=== PATIENT | male | born 1990 | race Caucasian/White ===

== ENCOUNTER 2025-03-08 10:26 | Emergency (ER) | payer MEDICAID, OTHER ==
[~2025-03-08] VITALS: Ht 180.3 cm; Wt 87.0 kg
--- NOTE | 2025-03-08 11:07 | ED.PDOC ---
Psychiatric HPI Comments This is a 34 year old male BIB father presenting to the ED with chief complaint of hallucinations. Father reports that the patient has been experiencing auditory and visual hallucinations for the past 3 weeks with associated sleeplessness. Father relays that the patient has been acting odd and brought him here today for assistance. Patient denies any SI, HI, or further symptoms at this time. Chief Complaint: Hallucinations Time Seen by MD: 11:04 Reviewed Notes: Nurses Notes, Medications, Allergies Information Source: Patient Mode of Arrival: Ambulatory Severity: Able to Care for Self, Able to Control Self Severity of Pain: None Severity of Mental Status: Moderate Severity of Symptoms: Moderate Timing: Weeks Duration: Since onset Prehospital treatment: None Presents with: Unclear Thinking Circumstance: Medical Clearance Current substance abuse: None Stressors: None History of: None Associated signs and symptoms: Hallucinations Past Medical History PAST MEDICAL HISTORY: Denies Surgical History: Denies all surgeries Family History Family History: Reviewed,noncontributory to illness Social History Smoker: Non-Smoker Alcohol: Denies ETOH Use Drugs: Denies Drug Use Lives In: Home Constitutional: denies: chills, diaphoresis, fatigue, fever, malaise, sweats, weakness, others EENTM: denies: blurred vision, double vision, ear bleeding, ear discharge, ear drainage, ear pain, ear ringing, eye pain, eye redness, hearing loss, mouth pain, mouth swelling, nasal discharge, nose bleeding, nose congestion, nose pain, photophobia, tearing, throat pain, throat swelling, voice changes, others Respiratory: denies: cough, hemoptysis, orthopnea, SOB at rest, shortness of breath, SOB with excertion, stridor, wheezing, others Cardiovascular: denies: chest pain, dizzy spells, diaphoresis, Dyspnea on exertion, edema, irregular heart beat, left arm pain, lightheadedness, palpitations, PND, syncope, others Gastrointestinal: denies: abdomen distended, abdominal pain, blood streaked bowels, constipated, diarrhea, dysphagia, difficulty swallowing, hematemesis, melena, nausea, poor appetite, poor fluid intake, rectal bleeding, rectal pain, vomiting, others Genitourinary: denies: burning, dysuria, flank pain, frequency, hematuria, incontinence, penile discharge, penile sore, pain, testicle pain, testicle swelling, urgency, others Neurological: denies: dizziness, fainting, headache, left sided numbness, left sided weakness, numbness, paresthesia, pre-existing deficit, right sided numbness, right sided weakness, seizure, speech problems, tingling, tremors, weakness, others Musculoskeletal: denies: back pain, gout, joint pain, joint swelling, muscle pain, muscle stiffness, neck pain, others Integumetry: denies: bruises, change in color, change in hair/nails, dryness, laceration, lesions, lumps, rash, wounds, others Allergic/Immunocompromised: denies: Difficulty Healing, Frequent Infections, Hives, Itching, others Hematologic/Lymphatic: denies: anemia, blood clots, easy bleeding, easy bruising, swollen glands, others Endocrine: denies: excessive hunger, excessive sweating, excessive thirst, excessive urination, flushing, intolerance to cold, intolerance to heat, une xplained weight gain, unexplained weight loss, others Psychiatric: reports: sleepless, others (Hallucinations); denies: anxiety, bipolar disorder, depression, hopeless, panic disorder, schizophrenia, suicidal All Other Systems: Reviewed and Negative Physical Exam General Appearance: Moderate Distress, Normal HEENT: Normal ENT Inspection, Pharynx Normal, TMs Normal Neck: Full Range of Motion, Non-Tender, Normal, Normal Inspection Respiratory: Chest Non-Tender, Lungs Clear, No Accessory Muscle Use, No Respiratory Distress, Normal Breath Sounds Cardiovascular: No Edema, No JVD, No Murmur, No Gallop, Normal Peripheral Pulses, Regular Rate/Rhythm Breast Exam: Deferred Gastrointestinal: No Organomegaly, Non Tender, No Pulsatile Mass, Normal Bowel Sounds, Soft Genitalia: Deferred Pelvic: Deferred Rectal: Deferred Extremities: No calf tenderness, Normal capillary refill, Normal inspection, Normal range of motion, Non-tender, No pedal edema Musculoskeletal : Apperance: Normal Neurologic: Alert, community service coordinator II-XII nml as Tested, No Motor Deficits, Normal Affect, Normal Mood, No Sensory Deficits Cerebellar Function: Normal Reflexes: Normal Skin: Dry, Normal Color, Warm Peripheral Pulses: 3+ Radial (R), 3+ Radial (L) Lymphatic: No Adenopathy Was a procedure done? Was a procedure done?: No Psych Differential Dx Psych. Differential Dx: Anxiety, Schizoprenia, Sleepless X-Ray, Labs, Meds, VS Vital Signs Date Time Temp Pulse Resp B/P (MAP) Pulse Ox O2 Delivery O2 Flow Rate FiO2 03/08/25 10:47 97.8 92 16 132/101 99 97.8 Patient alert. Vitals stable. Came in because of hallucinations. Answering questions. Saturation pristine on room air. Denies suicidal homicidal ideation. Ambulating. Psychiatric evaluation. Medically cleared. Continue monitoring. Time of 1ST Reevaluation: 12:03 Reevaluation 1ST: Unchanged Patient Education/Counseling: Diagnosis, Treatment Family Education/Counseling: Diagnosis, Treatment Departure 1 Departure Time of Disposition: 11:13 Impression: Primary Impression: Hallucinations Disposition: 30 STILL A PATIENT Condition: Good Critical Care Note Critical Care Time?: No Stability Stability form required: No Heart Score Heart Score: Heart Score Response (Comments) Value History N/A 0 EKG N/A 0 Age N/A 0 Risk Factors N/A 0 Troponin N/A 0 Total 0 I personally scribed for MARIANELA ALFRED MD ([email or web address]) on 03/08/25 at 11:07. Electronically submitted by Smooth Barroso ([email or web address]). MARIANELA ALFRED MD Mar 08, 2025 11:07
[2025-03-08 14:30] VITALS: BP 145/85; PULSE 114; RESP 20; TEMP 97.6; O2SAT 95
== END 2025-03-08 19:00 | disposition left against medical advice (07) ==
LOC: ER 10:26
DX: R44.0 Auditory hallucinations (principal); R44.1 Visual hallucinations